=== PATIENT | female | born 1975 | race Caucasian/White ===

== ENCOUNTER 2020-05-03 12:02 | Inpatient (IN) | payer OTHER ==
[~2020-05-03] VITALS: Ht 157.5 cm; Wt 76.2 kg
[~2020-05-03 12:02] MED LIST: AEROCHAMBER1 EA XX; BACTRIM DS TAB1 EACH PO; FLORASTOR250 MG PO; KEFLEX500 MG PO; VENTOLIN HFA 66.7 GM INH; VIBRAMYCIN100 MG PO; ZOFRAN ODT 4 MG4 MG PO; ZOFRAN ODT 4 MG4 MG SL
[2020-05-03 14:29] LABS: HEMOGLOBIN 12.2 gm/dl (12.3-15.3); RED BLOOD COUNT 4.35 M/UL (4.00-5.10); WHITE BLOOD COUNT 22.5 K/UL (4.5-11.0)
[2020-05-03 15:10] LABS: BUN/CREATININE RATIO 18 (0-10)
[2020-05-03] MEDS ORDERED: ZESTRIL/PRINIVI10 MG PO (16:29)
[2020-05-03] MEDS ORDERED: VITAMIN D31250 MCG PO (16:43)
[2020-05-04 02:25] LABS: HEMOGLOBIN 11.5 gm/dl (12.3-15.3); RED BLOOD COUNT 4.09 M/UL (4.00-5.10); WHITE BLOOD COUNT 21.6 K/UL (4.5-11.0)
[2020-05-04 02:51] LABS: BUN/CREATININE RATIO 13 (0-10)
[2020-05-05 03:16] LABS: RED BLOOD COUNT 3.92 M/UL (4.00-5.10); WHITE BLOOD COUNT 27.8 K/UL (4.5-11.0)
[2020-05-05 03:42] LABS: BUN/CREATININE RATIO 22 (0-10)
[2020-05-06 08:53] LABS: HEMOGLOBIN 10.7 gm/dl (12.3-15.3); RED BLOOD COUNT 3.81 M/UL (4.00-5.10)
[2020-05-06 08:55] LABS: WHITE BLOOD COUNT 14.7 K/UL (4.5-11.0)
[2020-05-06 09:28] LABS: BUN/CREATININE RATIO 25 (0-10)
[2020-05-07 04:03] LABS: HEMOGLOBIN 10.9 gm/dl (12.3-15.3); RED BLOOD COUNT 3.92 M/UL (4.00-5.10); WHITE BLOOD COUNT 13.7 K/UL (4.5-11.0)
[2020-05-07 04:23] LABS: BUN/CREATININE RATIO 21 (0-10)
[2020-05-08 05:42] LABS: HEMOGLOBIN 11.5 gm/dl (12.3-15.3); RED BLOOD COUNT 4.11 M/UL (4.00-5.10); WHITE BLOOD COUNT 12.2 K/UL (4.5-11.0)
[2020-05-08 05:55] LABS: BUN/CREATININE RATIO 17 (0-10)
[2020-05-08] MEDS ORDERED: BACTRIM DS TAB1 EACH PO (10:53)
[2020-05-08] MEDS ORDERED: HYDROCODON-ACE1 EAC4 PO (11:04)
== END 2020-05-08 11:56 | disposition home or self-care (01) | DRG 854 ==
LOC: ER1 12:02 → CDU 14:43 → M/S 14:43 → ZEROF 17:55 → CDU 17:55 → M/S 20:07
PROVIDERS: Physician Assistant; Surgery; ADMIT Internal Medicine
PROC: 0J990ZZ Drainage of Buttock Subcutaneous Tissue and Fascia, Open Approach (ICD-10-PCS; principal; 2020-05-04 12:45)
DX: A41.02 Sepsis due to Methicillin resistant Staphylococcus aureus (principal); L02.31 Cutaneous abscess of buttock; L03.317 Cellulitis of buttock; I10 Essential (primary) hypertension; F17.220 Nicotine dependence, chewing tobacco, uncomplicated; Z20.822 Contact with and (suspected) exposure to COVID-19; Z85.41 Personal history of malignant neoplasm of cervix uteri; Z90.710 Acquired absence of both cervix and uterus; F17.229 Nicotine dependence, chewing tobacco, with unspecified nicotine-induced disorders; Z82.49 Family history of ischemic heart disease and other diseases of the circulatory system; Z83.3 Family history of diabetes mellitus; Z88.6 Allergy status to analgesic agent; Z91.040 Latex allergy status; Z91.018 Allergy to other foods; E87.6 Hypokalemia
CPT/HCPCS: 36415; 80048; 80053; 80202; 81001; 83605; 85025; 87040; 87070; 87077; 87186; 87205; 96365; 96366; 99284; J1100; J2001; J2250; J2405; J2704; J2765; J3010; J3370; J7030; J7070; J7120; U0002

== ENCOUNTER 2020-07-10 13:12 | Emergency (ER) | payer OTHER ==
[~2020-07-10 13:12] MED LIST changes: +HYDROCODON-ACE1 EAC4 PO; +VITAMIN D31250 MCG PO; +ZESTRIL/PRINIVI10 MG PO
[2020-07-10 14:20] LABS: RED BLOOD COUNT 4.8 M/UL (4.00-5.10); WHITE BLOOD COUNT 8.6 K/UL (4.5-11.0)
[2020-07-10 15:03] LABS: BUN/CREATININE RATIO 16 (0-10)
== END 2020-07-10 16:53 | disposition home or self-care (01) ==
LOC: ER1 13:12
PROVIDERS: Emergency Medicine
DX: J06.9 Acute upper respiratory infection, unspecified (principal); I10 Essential (primary) hypertension; Z79.01 Long term (current) use of anticoagulants; Z91.040 Latex allergy status; Z90.710 Acquired absence of both cervix and uterus; Z20.822 Contact with and (suspected) exposure to COVID-19
CPT/HCPCS: 0240U; 71045; 80053; 81001; 83605; 85025; 87040; 87081; 87880; 99283; J7030